=== PATIENT | female | born 2000 | race Caucasian/White ===

== ENCOUNTER 2021-12-24 13:16 | Emergency (ER) | payer OTHER, SELFPAY ==
[2021-12-24 13:26] VITALS: BP 116/70; PULSE 99; RESP 18; TEMP 35.7; O2SAT 100; BMI 23.8
--- NOTE | 2021-12-24 13:45 | ED.URI ---
HPI - URI/Sore Throat General Chief Complaint: Upper Respiratory Symptoms Stated Complaint: mono testing, strep Time Seen by Provider: 12/24/21 13:22 Source: patient Mode of arrival: ambulatory Limitations: no limitations History of Present Illness HPI Narrative: The patient comes to emergency room complaining of sore throat. Patient states that 4 days ago she was giving a 2 time dose of steroids and started on penicillin. Since then, the throat discomfort has gradually been getting worse. Patient denies fever chills. No vomiting or diarrhea. Related Data Allergies Allergy/AdvReac Type Severity Reaction Status Date / Time No Known Allergies Allergy Verified 12/24/21 13:29 Review of Systems Review of Systems: Constitutional : No Weight loss, No Fever, No Chills, No Night Sweats, No Fatigue, No Malaise ENT/Mouth : No Hearing loss, No Ear Pain, No Nasal Congestion, No Sinus Pain, No Hoarseness, Complaining of worsening sore throat, No Rhinorrhea, No Swallowing Difficulty Eyes: No Eye Pain, No Swelling, No Redness, No Foreign Body, No Discharge, No Vision Changes Cardiovascular : No Chest Pain, No SOB, No Dyspnea on Exertion, No Orthopnea, No Edema, No Palpitations Respiratory : No Cough, No Sputum, No Wheezing, No Smoke Exposure, No Dyspnea Gastrointestinal : No Nausea, No Vomiting, No Diarrhea, No Constipation, No abdominal Pain, No Hematochezia, No Melena Genitourinary : no irregular bleeding, No Dysuria, No Urinary Frequency, No Hematuria, No Urinary Incontinence, No Urgency, No Flank Pain, No Urinary Flow Changes, No Hesitancy Musculoskeletal : No joint pain, No Myalgias, No Joint Swelling Skin : No Skin Lesions, No rash Neuro : No Weakness, No Numbness, No Paresthesias, No Loss of Consciousness, No Dizziness, No Headache Psych : No Anxiety/Panic, No Depression, No SI/HI/AH/VH, No Social Issues, Heme/Lymph: No Bruising, No Bleeding,No Lymphadenopathy Endocrine : No Polyuria, No Polydipsia, No Temperature Intolerance PMFSH Social History Social History Advance Directives: No Advance Directives Information Provided: Yes Physical Exam Vital Signs: Vital Signs: Last Vital Signs Temp 96.2 F L 12/24/21 13:26 Pulse 99 12/24/21 13:26 Resp 18 12/24/21 13:26 BP 116/70 06/29/22 13:26 Pulse Ox 100 12/24/21 13:26 O2 Del Method 12/24/21 13:26 BMI result Body Mass Index 23.8 Const: Other: Appearance: Alert. Oriented X3. No acute distress. Eyes: Pupils equal, round and reactive to light. ENT: pharynx erythematous, has exudates bilaterally, no visualized abscess. Neck: Normal inspection. Neck supple. No lymph nodes noted. No crepitus CVS: Normal heart rate and rhythm. Pulses normal. Normal S1 and S2 Respiratory: No respiratory distress. Breath sounds normal. No Wheezing. No rales Abdomen: Soft and nontender. No rigidity. No distention. Skin: Skin warm and dry. Normal skin color. Normal skin turgor. Extremities: No lower extremity edema. No Lacerations. No Rash Neuro: Oriented X 3. No motor deficit. No sensory deficit. Moving all extremities. No slurred speech. CN 2 through 12 grossly intact Psych: calm, cooperative, normal affect Course Course Course Narrative: At Time, mono and strep test pending 14:20, patient's mono test is positive. Patient will be given 1 dose of p.o. dexamethasone and lidocaine. I discussed with the patient that the treatment is mostly symptomatic. Also, I discussed with the patient that she should not be involved in any contact sports. If there is any trauma to the abdominal area, she needs to return to the emergency room for evaluation. MDM - URI/Sore Throat Lab Data Labs: Lab Results 12/24/21 12/24/21 Range/Units 13:43 13:43 Monoscreen Positive A (Negative) S. pyogenes GrpA BETSY Negative (Negative) Discharge Plan Discharge Clinical Impression: Mononucleosis Patient Disposition: Home, Self-Care Instructions: Mononucleosis (ED) Additional Instructions: Avoid contact sports for at least 3 weeks or until cleared by your primary care physician. If you sustained any abdominal trauma in the next 3 weeks, you need to return to the emergency room for evaluation. Avoid kissing family/friends/significant other, avoid sharing utensils with others, use your mask at all times when people around you. You may use Tylenol and ibuprofen for symptomatic relief Stand Alone Forms: Work/School Release
[2021-12-24 14:04] LABS: Strep A Nucleic Acid Negative (Negative)
[2021-12-24 14:17] LABS: Monotest Positive (Negative)
[2021-12-24] MEDS: dexAMETHasone sod phosphate 4 MG/ML VIAL 6 MG IVPUSH (14:49)
[2021-12-24] MEDS: Lidocaine HCl Viscous 2 % 15 ML SOLUTION MUCOUS MEM (14:49)
== END 2021-12-24 14:55 | disposition home or self-care (01) ==
PROVIDERS: Emergency Provider Emergency Medicine; PCP Pediatrics Adolescent Medicine
DX: B27.90 Infectious mononucleosis, unspecified without complication (principal)
CPT/HCPCS: 36415; 86308; 87651; 96374; 99282; 99284; J1100